=== PATIENT | male | born 1975 | race Caucasian/White ===

== ENCOUNTER 2017-08-15 07:15 | Day surgery (SDC) | payer OTHER ==
[~2017-08-15 07:15] MED LIST: CEFAZOLIN 2 GM/50 ML (PMX) 50 ML IVPB; ROCURONIUM 50 MG INJ; SOD CHLORIDE 0.9% 1,000 ML IV
[2017-08-15 08:38] LABS: ADD MAN DIFF? NO
[2017-08-15 08:44] LABS: WHITE BLOOD COUNT 4.8 10^3/ul (4.8-10.8)
[2017-08-15 08:44] LABS: BASOPHILS % 0.8 % (0.0-2.0); EOSINOPHILS # 0.1 10^3/ul (0.0-0.5); EOSINOPHILS % 2.1 % (0.0-7.0); HEMATOCRIT 42.1 % (42.0-52.0); HEMOGLOBIN 14.3 g/dl (14.0-18.0); LYMPHOCYTES # 1.8 10^3/ul (0.8-2.9); LYMPHOCYTES % 36.2 % (15.0-51.0); MEAN CORPUSCULAR HEMOGLOBIN 29.4 pg (29.0-33.0); MEAN CORPUSCULAR VOLUME 86.4 fl (82.0-101.0); MEAN PLATELET VOLUME 10.1 fl (7.4-10.4); MONOCYTE # 0.4 10^3/ul (0.3-0.9); MONOCYTES % 9.1 % (0.0-11.0); NEUTROPHIL # 2.5 10^3/ul (1.6-7.5); NEUTROPHILS % 51.6 % (39.0-77.0); PLATELET COUNT 275 10^3/UL (140-415); RED BLOOD COUNT 4.87 10^6/ul (4.70-6.10); RED CELL DISTRIBUTION WIDTH 12.6 % (11.5-14.5)
[2017-08-15] MEDS ORDERED: ONDANSETRON 4 MG INJ (08:46)
[2017-08-15] MEDS ORDERED: PROPOFOL 20 ML (08:46)
[2017-08-15] MEDS ORDERED: METOCLOPRAMIDE 10 MG INJ (08:46)
[2017-08-15] MEDS ORDERED: ROPIVACAINE 0.2% 20 ML VIAL ×2 (08:46→08:47)
[2017-08-15] MEDS ORDERED: MIDAZOLAM 1 MG/ML 2 ML INJ (08:46)
[2017-08-15] MEDS ORDERED: POLYMYXIN/BACITRACIN 1L IRRIG (08:48)
[2017-08-15] MEDS ORDERED: KETOROLAC 30 MG INJ (08:49)
[2017-08-15] MEDS ORDERED: NEOSTIGMINE 3 MG/3 ML SYRINGE (08:49)
[2017-08-15 08:59] LABS: INR 0.94; PROTIME 12.7 Sec (11.9-14.9)
[2017-08-15] MEDS ORDERED: CEFAZOLIN 1 GM INJ (09:06)
[2017-08-15 09:09] LABS: ALANINE AMINOTRANSFERASE 47 IU/L (13-69); ALBUMIN/GLOBULIN RATIO 1.42; ALKALINE PHOSPHATASE 52 IU/L (42-121); ANION GAP 19 (8-16); ASPARTATE AMINO TRANSFERASE 36 IU/L (15-46); BILIRUBIN,INDIRECT 0.3 mg/dl (0-1.1); BILIRUBIN,TOTAL 0.3 mg/dl (0.2-1.3); CARBON DIOXIDE 29 mmol/L (21-31); CHLORIDE 101 mmol/L (97-110); GLUCOSE 86 mg/dl (70-220); TOTAL PROTEIN 8.5 g/dl (6.1-8.1)
[2017-08-15 09:11] LABS: BLOOD UREA NITROGEN 16 mg/dl (7-20); CALCIUM 9.6 mg/dl (8.4-10.2); CREATININE 0.69 mg/dl (0.61-1.24); POTASSIUM 4.5 mmol/L (3.5-5.1); SODIUM 144 mmol/L (135-144)
[2017-08-15 09:13] LABS: PARTIAL THROMBOPLASTIN TIME 37.7 Sec (25.0-35.0)
[2017-08-15] MEDS: BUPIVACAINE 0.25% (MPF) 30 ML INJ (09:20)
[2017-08-15] MEDS ORDERED: OXYCODONE/ACETAMINOPHEN (5/325) TAB PO ×2 (09:30)
[2017-08-15] MEDS ORDERED: MEPERIDINE 25 MG INJ IV (09:30)
[2017-08-15] MEDS ORDERED: DIPHENHYDRAMINE 50 MG INJ IV (09:30)
[2017-08-15] MEDS ORDERED: GLYCOPYRROLATE 0.4 MG INJ (09:51)
[2017-08-15] MEDS: HYDROmorphONE (0.2 MG/ML) 10ML SYG IV ×4 (10:05→10:28)
[2017-08-15] MEDS: ONDANSETRON 4 MG INJ IV (10:09)
[2017-08-15] MEDS: HYDROCODONE/APAP (5/325) TAB PO (10:32)
== END 2017-08-15 11:58 | disposition home or self-care (01) ==
LOC: SDS 07:15
DX: K40.30 Unilateral inguinal hernia, with obstruction, without gangrene, not specified as recurrent (principal)
CPT/HCPCS: 49507; 80053; 85025; 85610; 85730